=== PATIENT | female | born 1990 | race American Indian/Alaskan Native ===

== ENCOUNTER 2017-01-01 12:53 | Emergency (ER) | payer MEDICAID, OTHER ==
[2017-01-01 12:54] VITALS: BMI 37.5
[2017-01-01 13:00] VITALS: BP 124/84; PULSE 77; RESP 16; TEMP 97.5; O2SAT 98
--- NOTE | 2017-01-01 13:10 | ED PDOC ---
Arrival/HPI - General Chief Complaint: Upper Extremity Problem/Injury Time Seen by Provider: 01/01/17 13:03 Historian: Patient - History of Present Illness Narrative History of Present Illness (Text): 01/01/17 13:12 26 yo F presents with 2 week h/o intermittent mild atraumatic R elbow pain, worse with movement and with lifting. 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 Denies any redness, swelling, fever , chills, other joint pain. PMD Yarelis Past Medical History - Provider Review Nursing Documentation Reviewed: Yes - Infectious Disease Hx of Infectious Diseases: None - Tetanus Immunization Tetanus Immunization: Unknown - Reproductive Menopause: No - Pulmonary Hx Asthma: Yes - Musculoskeletal/Rheumatological Hx Falls: No - Psychiatric Hx Depression: No Hx Emotional Abuse: No Hx Physical Abuse: No Hx Substance Use: No - Surgical History Hx Appendectomy: Yes - Anesthesia Hx Anesthesia: Yes Hx Anesthesia Reactions: No Hx Malignant Hyperthermia: No - Suicidal Assessment Feels Threatened In Home Enviroment: No Family/Social History - Physician Review Nursing Documentation Reviewed: Yes Family/Social History: No Known Family HX Smoking Status: Never Smoked Hx Alcohol Use: Yes Hx Substance Use: No Hx Substance Use Treatment: No Allergies/Home Meds Allergies/Adverse Reactions: Allergies shellfish derived Allergy (Verified 02/16/16 18:49) SWELLING Home Medications: Home Meds Medication Instructions Recorded Confirmed No Known Home Med 01/01/17 01/01/17 Physical Exam - Physical Exam Narrative Physical Exam (Text): 01/01/17 13:13 GENERAL APPEARANCE: Patient is awake, alert, oriented x 3, in no acute distress. SKIN: Warm, dry, (-) rash, (-) lesions. ELBOW: (-) Tenderness, (-) swelling, (-) ecchymosis; (-) decreased ROM, (-) effusion. (-) distal neurovascular deficit, (+) 2 point discrimination, including extension of wrist and digits. Remainder of arm, including shoulder and wrist: Nontender, (-) edema, (-) ecchymosis, (+) FROM. Vital Signs Temp Pulse Resp BP Pulse Ox 01/01/17 12:56 97.5 F L 77 16 124/84 98 Medical Decision Making ED Course and Treatment: 01/01/17 13:07 26 yo F presents with 2 week h/o atraumatic R elbow pain, PE normal, likely overuse syndrome vs tendonitis. Based on history and exam, plan will be for patient follow-up. Advised to rest affected joint and take [id number] Aleve as needed for pain. Patient states she fully agrees with and understands discharge instructions. States that she agrees with the plan and disposition. Verbalized and repeated discharge instructions and plan. I have given the patient opportunity to ask any additional questions. Follow up with primary care physician in 1-2 days without fail. Return to the emergency room at any time for any new or worsening symptoms. - PA / INSPECTOR MECHANICAL / Resident Statement MD/DO has reviewed & agrees with the documentation as recorded. Disposition/Present on Arrival - Present on Arrival Any Indicators Present on Arrival: No History of DVT/PE: No History of Uncontrolled Diabetes: No Urinary Catheter: No History of Decub. Ulcer: No History Surgical Site Infection Following: None - Disposition Have Diagnosis and Disposition been Completed?: Yes Diagnosis: Elbow pain, right Disposition: HOME/ ROUTINE Disposition Time: 13:10 Patient Plan: Discharge Condition: GOOD Discharge Instructions (ExitCare): Tendinitis (ED) Print Language: [place] CITIZEN Additional Instructions: Thank you for letting us take care of you today. You were treated for right elbow pain, possible overuse syndrome, consider tendinitis. The emergency medical care you received today was directed at your acute symptoms. Take over- the-counter Aleve as needed for pain, take with food. It may take several days for your symptoms to resolve. Return to the Emergency Department if your symptoms worsen, do not improve, or if you have any other problems. Please contact your doctor in 2 days for re-evaluation and follow up. Bring any paperwork you were given at discharge with you along with any medications you are taking to your follow up visit. Our treatment cannot replace ongoing medical care by a primary care provider (PCP) outside of the emergency department. Thank you for allowing the [email or web address] team to be part of your care today. Forms: WORK NOTE
== END 2017-01-01 13:54 | disposition home or self-care (01) ==
LOC: ED 12:53
DX: M25.521 Pain in right elbow (principal)

== ENCOUNTER 2017-08-06 15:02 | Emergency (ER) | payer MEDICAID ==
[2017-08-06 15:02] VITALS: BMI 37.5
--- NOTE | 2017-08-06 15:31 | ED PDOC ---
Arrival/HPI - General Chief Complaint: ENT Problem Time Seen by Provider: 08/06/17 15:26 Historian: Patient - History of Present Illness Narrative History of Present Illness (Text): 08/06/17 15:31 26-year-old female [place], with pmh asthma, presents to the emergency department complaining of sore throat x one day. She stated she has difficulty swallowing. Patient feels her tonsils are enlarged. She denies fever, shortness of breath, skin rash, abdominal pain, nausea, vomiting, tinnitus, or abnormal gait Time/Duration: Other (1 day) Context: Home Past Medical History - Provider Review Nursing Documentation Reviewed: Yes - Infectious Disease Hx of Infectious Diseases: None - Tetanus Immunization Tetanus Immunization: Unknown - Pulmonary Hx Asthma: Yes - Musculoskeletal/Rheumatological Hx Falls: No - Psychiatric Hx Depression: No Hx Emotional Abuse: No Hx Physical Abuse: No Hx Substance Use: No - Surgical History Hx Appendectomy: Yes - Anesthesia Hx Anesthesia: Yes Hx Anesthesia Reactions: No Hx Malignant Hyperthermia: No - Suicidal Assessment Feels Threatened In Home Enviroment: No Family/Social History - Physician Review Nursing Documentation Reviewed: Yes Family/Social History: Other (Noncontributory) Smoking Status: Never Smoked Hx Alcohol Use: Yes Frequency of alcohol use: Socially Hx Substance Use: No Hx Substance Use Treatment: No Allergies/Home Meds Allergies/Adverse Reactions: Allergies shellfish derived Allergy (Intermediate, Verified 08/06/17 15:05) SWELLING Review of Systems - Review of Systems Constitutional: Normal. absent: Fatigue, Weight Change, Fevers Eyes: Normal ENT: Sore Throat. absent: Hearing Changes, Tinnitus, TMJ Pain, Voice Changes, Rhinorrhea, Epistaxis, Sinus Congestion Respiratory: Normal. absent: SOB, Cough, Sputum, Wheezing Cardiovascular: Normal. absent: Chest Pain, Palpitations Gastrointestinal: Normal. absent: Abdominal Pain, Nausea, Vomiting Genitourinary Female: Normal. absent: Dysuria, Frequency, Hematuria Musculoskeletal: Normal. absent: Arthralgias, Back Pain, Neck Pain Skin: Normal. absent: Rash Neurological: Normal. absent: Headache, Dizziness, Focal Weakness, Gait Changes , Speech Changes, Facial Droop, Disequilibrium, Seizure Endocrine: Normal Hemo/Lymphatic: Normal Psychiatric: Normal Physical Exam Vital Signs Temp Pulse Resp BP Pulse Ox 08/06/17 15:05 98.8 F 102 H 18 113/80 98 1022/17 15:02 98.8 F 102 H 18 113/80 98 Temperature: Afebrile Blood Pressure: Normal Pulse: Regular Respiratory Rate: Normal Appearance: Positive for: Well-Appearing, Non-Toxic, Comfortable Pain Distress: None Mental Status: Positive for: Alert and Oriented X 3 - Systems Exam Head: Present: Atraumatic, Normocephalic Pupils: Present: PERRL Extroacular Muscles: Present: EOMI Conjunctiva: Present: Normal Mouth: Present: Moist Mucous Membranes Pharnyx: Present: ERYTHEMA, EXUDATE, TONSILS ENLARGED, Muffled/Hoarse Voice. No : Peritonsilar Swelling, Uvular Deviation, Strider, Soft Palate/Uvular Edema Neck: Present: Normal Range of Motion Respiratory/Chest: Present: Clear to Auscultation, Good Air Exchange. No: Respiratory Distress, Accessory Muscle Use Cardiovascular: Present: Regular Rate and Rhythm, Normal S1, S2. No: Murmurs Abdomen: Present: Normal Bowel Sounds. No: Tenderness, Distention, Peritoneal Signs Back: Present: Normal Inspection Upper Extremity: Present: Normal Inspection. No: Cyanosis, Edema Lower Extremity: Present: Normal Inspection. No: Edema Neurological: Present: GCS=15, CN II-XII Intact, Speech Normal Skin: Present: Warm, Dry, Normal Color. No: Rashes Psychiatric: Present: Alert, Oriented x 3, Normal Insight, Normal Concentration Medical Decision Making ED Course and Treatment: 08/06/17 15:35 Patient stated she developed "palpitations" last time she took Amoxicillin. I reviewed the risk of taking Decadron including AVN, DM, glaucoma, osteoporosis. She agrees with these risk, and she is aware of them. She stated she has taken this medication in the past. 08/06/17 16:34 Re-evaluation. Patient feels better. Discussed results and plan with patient who expresses understanding. All questions answered and there is agreement with the plan to discharge home with instructions. Patient stable for discharge. Return if symptoms persist or worsen. Re-evaluation Time: 16:34 Reassessment Condition: Re-examined, Improved - Medication Orders Current Medication Orders: Discontinued Medications Clarithromycin (Biaxin Filmtab) 500 mg PO STAT STA PRN Reason: Protocol Stop: 08/06/17 15:29 Last Admin: 10/22/17 16:37 Dose: 500 mg Comments: Patient refused IM injection. As per Greyson DAVIS, to be medication PO. Dexamethasone (Decadron Inj) 10 mg IM STAT STA Stop: 08/06/17 15:28 Last Admin: 08/06/17 16:38 Dose: 10 mg IM Administration Charges Document 08/06/17 16:38 RG (Rec: 08/06/17 16:38 RG [id number]) Charges for Administration # of IM Administrations 0 Disposition/Present on Arrival - Present on Arrival Any Indicators Present on Arrival: No History of DVT/PE: No History of Uncontrolled Diabetes: No Urinary Catheter: No History of Decub. Ulcer: No History Surgical Site Infection Following: None - Disposition Have Diagnosis and Disposition been Completed?: Yes Diagnosis: Pharyngitis Disposition: HOME/ ROUTINE Disposition Time: 16:34 Patient Plan: Discharge Patient Problems: Current Active Problems Problem Status Onset Pharyngitis Acute Condition: GOOD Discharge Instructions (ExitCare): Pharyngitis (ED) Additional Instructions: Call private doctor for follow up visit in 1-2 days. Take medication as instructed. Return to emergency if symptoms worsen. Change tooth brush in 4 days Prescriptions: Clarithromycin [Biaxin Filmtab] 500 mg PO BID #14 tab Referrals: Nyla Lai MD [Primary Care Provider] - Follow up with primary Forms: [employer] ([place]), WORK NOTE
[2017-08-06 16:48] VITALS: BP 109/71; PULSE 74; RESP 19; TEMP 98.5; O2SAT 99
== END 2017-08-06 16:50 | disposition home or self-care (01) ==
LOC: ED 15:02
DX: J02.9 Acute pharyngitis, unspecified (principal)
CPT/HCPCS: 81025; 99283; J1100

== ENCOUNTER 2017-08-30 19:34 | Emergency (ER) | payer MEDICAID ==
[2017-08-30 19:34] VITALS: BMI 37.5
[2017-08-30 20:02] VITALS: BP 143/90
[2017-08-30 20:27] VITALS: PULSE 89; TEMP 98.1
--- NOTE | 2017-08-30 20:33 | ED PDOC ---
Arrival/HPI - General Historian: Patient <Greyson Rodriguez - Last Filed: 08/30/17 20:34> <Jan Guerrero - Last Filed: 08/30/17 20:47> - General Chief Complaint: Dental Pain Time Seen by Provider: 08/30/17 20:32 - History of Present Illness Narrative History of Present Illness (Text): 08/30/17 20:33 This 26 yo female presents to this ED c/o right lower posterior toothache x 2 days. (Greyson Rodriguez) Past Medical History - Infectious Disease Hx of Infectious Diseases: None - Tetanus Immunization Tetanus Immunization: Unknown - Cardiac Hx Cardiac Disorders: No - Pulmonary Hx Asthma: Yes - Neurological Hx Neurological Disorder: No - HEENT Hx HEENT Disorder: No - Renal Hx Renal Disorder: No - Endocrine/Metabolic Hx Endocrine Disorders: No - Hematological/Oncological Hx Blood Disorders: No - Integumentary Hx Dermatological Disorder: No - Musculoskeletal/Rheumatological Hx Musculoskeletal Disorders: No Hx Falls: No - Gastrointestinal Hx Gastrointestinal Disorders: No - Genitourinary/Gynecological Hx Genitourinary Disorders: No - Psychiatric Hx Psychophysiologic Disorder: No Hx Substance Use: No - Surgical History Hx Appendectomy: Yes - Anesthesia Hx Anesthesia: Yes Hx Anesthesia Reactions: No Hx Malignant Hyperthermia: No - Suicidal Assessment Feels Threatened In Home Enviroment: No <Greyson Rodriguez - Last Filed: 08/30/17 20:34> Family/Social History Smoking Status: Never Smoked Hx Alcohol Use: No Hx Substance Use: No Hx Substance Use Treatment: No <Greyson Rodriguez - Last Filed: 08/30/17 20:34> Allergies/Home Meds <Greyson Rodriguez - Last Filed: 08/30/17 20:34> <Jan Guerrero - Last Filed: 08/30/17 20:47> Allergies/Adverse Reactions: Allergies shellfish derived Allergy (Intermediate, Verified 08/30/17 19:57) SWELLING Vital Signs Temp Pulse Resp BP Pulse Ox 08/30/17 20:26 98.1 F 89 19 99 08/30/17 19:58 98.4 F 85 16 143/90 100 Medical Decision Making Re-evaluation Time: 20:34 Reassessment Condition: Re-examined, Improved <Greyson Rodriguez - Last Filed: 08/30/17 20:34> <Jan Guerrero - Last Filed: 08/30/17 20:47> ED Course and Treatment: 08/30/17 20:34 Re-evaluation. Patient feels better. Discussed results and plan with patient who expresses understanding. All questions answered and there is agreement with the plan to discharge home with instructions. Patient stable for discharge. Return if symptoms persist or worsen. (Greyson Rodriguez) - Medication Orders Current Medication Orders: Discontinued Medications Clindamycin HCl (Cleocin) 300 mg PO STAT STA PRN Reason: Protocol Stop: 08/30/17 20:35 Ketorolac Tromethamine (Toradol) 30 mg IM STAT STA Stop: 08/30/17 20:34 - PA / COVERAGE ANALYST / Resident Statement / has reviewed & agrees with the documentation as recorded. <Jan Guerrero - Last Filed: 08/30/17 20:47> Disposition/Present on Arrival - Present on Arrival Any Indicators Present on Arrival: No History of DVT/PE: No History of Uncontrolled Diabetes: No Urinary Catheter: No History of Decub. Ulcer: No History Surgical Site Infection Following: None - Disposition Have Diagnosis and Disposition been Completed?: Yes Disposition Time: 20:35 Patient Plan: Discharge <Greyson Rodriguez - Last Filed: 08/30/17 20:34> <Jan Guerrero - Last Filed: 08/30/17 20:47> - Disposition Diagnosis: Pain, dental, Gum inflammation Disposition: HOME/ ROUTINE Condition: GOOD Discharge Instructions (ExitCare): Dental Caries (ED) Additional Instructions: Call private doctor for follow up visit in 1-2 days. Take medication as instructed with food. Make sure you see your dentist tomorrow. Return to emergency if symptoms worsen. Prescriptions: Clindamycin [Cleocin] 300 mg PO TID #30 cap Famotidine [Pepcid] 40 mg PO DAILY #10 tablet Naproxen 500 mg PO BID #14 tab Referrals: [facility] [Outside] - Follow up with primary [facility] [Outside] - Follow up with primary Forms: [employer] (Yoruba)
[2017-08-30 21:31] VITALS: RESP 18; O2SAT 98
== END 2017-08-30 21:25 | disposition home or self-care (01) ==
LOC: ED 19:34
DX: K08.89 Other specified disorders of teeth and supporting structures (principal); K05.10 Chronic gingivitis, plaque induced
CPT/HCPCS: 81025; 96372; 99282; J1885

== ENCOUNTER 2018-07-02 19:05 | Emergency (ER) | payer MEDICAID ==
[2018-07-02 21:03] VITALS: BMI 27.4
--- NOTE | 2018-07-02 21:25 | ED PDOC ---
Arrival/HPI - History of Present Illness Time/Duration: 24 hours Symptom Onset: Gradual Symptom Course: Unchanged - General Chief Complaint: Back Pain Time Seen by Provider: 07/02/18 19:21 - History of Present Illness Narrative History of Present Illness (Text): 07/02/18 21:17 27 year old female, whose past medical history includes asthma, presents to the emergency department with lower back pain, since 1 day. Patient states she is having pain at her "kidneys", which radiates around to her abdomen. Patient states the pain is consistent, and slightly worse when sitting. Patient informs her last menstruation was june 14, and no history of kidney stones. Patient also informs pain to the touch on her lower back, but not to her abdomen. Patient informs taking one dose of each motrin and tylenol, with no ease in pain. Patient denies any dysuia, hematuria, urinary output changes, vaginal discharge or bleeding, fever, shortness of breath, constipation, or any other complaints. (Juventino Acosta) Past Medical History - Provider Review Nursing Documentation Reviewed: Yes - Infectious Disease Hx of Infectious Diseases: None - Tetanus Immunization Tetanus Immunization: Unknown - Cardiac Hx Cardiac Disorders: No - Pulmonary Hx Asthma: Yes - Neurological Hx Neurological Disorder: No - HEENT Hx HEENT Disorder: No - Renal Hx Renal Disorder: No - Endocrine/Metabolic Hx Endocrine Disorders: No - Hematological/Oncological Hx Blood Disorders: No - Integumentary Hx Dermatological Disorder: No - Musculoskeletal/Rheumatological Hx Musculoskeletal Disorders: No Hx Falls: No - Gastrointestinal Hx Gastrointestinal Disorders: No - Genitourinary/Gynecological Hx Genitourinary Disorders: No - Psychiatric Hx Psychophysiologic Disorder: No Hx Substance Use: No - Surgical History Hx Appendectomy: Yes - Anesthesia Hx Anesthesia: Yes Hx Anesthesia Reactions: No Hx Malignant Hyperthermia: No - Suicidal Assessment Feels Threatened In Home Enviroment: No Family/Social History - Physician Review Nursing Documentation Reviewed: Yes Family/Social History: No Known Family HX Smoking Status: Never Smoked Hx Alcohol Use: No Hx Substance Use: No Hx Substance Use Treatment: No Allergies/Home Meds Allergies/Adverse Reactions: Allergies shellfish derived Allergy (Intermediate, Verified 08/30/17 19:57) SWELLING Review of Systems - Physician Review All systems were reviewed & negative as marked: Yes - Review of Systems Constitutional: Normal. absent: Fevers Eyes: Normal ENT: Normal Respiratory: Normal. absent: SOB Cardiovascular: Normal Gastrointestinal: Abdominal Pain. absent: Constipation Genitourinary Female: Normal. absent: Dysuria, Hematuria, Urine Output Changes , Vaginal Bleeding, Vaginal Discharge Musculoskeletal: Back Pain Skin: Normal Neurological: Normal Endocrine: Normal Hemo/Lymphatic: Normal Psychiatric: Normal Physical Exam Vital Signs Reviewed: Yes Temperature: Afebrile Blood Pressure: Normal Pulse: Regular Respiratory Rate: Normal Appearance: Positive for: Well-Appearing, Non-Toxic, Comfortable Pain Distress: None Mental Status: Positive for: Alert and Oriented X 3 - Systems Exam Head: Present: Atraumatic, Normocephalic Pupils: Present: PERRL Extroacular Muscles: Present: EOMI Conjunctiva: Present: Normal Mouth: Present: Moist Mucous Membranes Neck: Present: Normal Range of Motion Respiratory/Chest: Present: Clear to Auscultation, Good Air Exchange. No: Respiratory Distress, Accessory Muscle Use Cardiovascular: Present: Regular Rate and Rhythm, Normal S1, S2. No: Murmurs Abdomen: No: Tenderness, Distention, Peritoneal Signs Back: Present: Paraspinal Tenderness (lumbosacral region) Upper Extremity: Present: Normal Inspection. No: Cyanosis, Edema Lower Extremity: Present: Normal Inspection. No: Edema Neurological: Present: GCS=15, CN II-XII Intact, Speech Normal Skin: Present: Warm, Dry, Normal Color. No: Rashes Psychiatric: Present: Alert, Oriented x 3, Normal Insight, Normal Concentration Vital Signs Temp Pulse Resp BP Pulse Ox 07/03/18 00:00 98.3 F 85 16 121/75 98 07/02/18 23:00 98.5 F 82 18 121/72 99 07/02/18 21:05 98.2 F 82 16 119/75 98 07/02/18 21:03 97.6 F 104 H 18 132/74 97 Medical Decision Making ED Course and Treatment: 07/02/18 21:38 Impression: 27 year old female presents with lower back pain Differential Diagnosis Includes But Is Not Limited To: Plan: -- Toradol -- Labs -- Urinalysis -- Reassess and disposition Prior Visits: Notes and results from previous visits were reviewed. Progress Notes: 07/02/18 23:41 Patient adamantly refusing IM injection of Toradol requesting PO medication. Motrin ordered and given. Call to the lab reveals UA is positive for WBCs. Keflex ordered. (Juventino Acosta) - Lab Interpretations Microbiology Results: Microbiology Results 07/02/18 22:53 Urine,Clean Catch Urine Culture - Final Staphylococcus Saprophyticus Lab Results: Lab Results 07/02/18 22:53: Urine Color Yellow, Urine Appearance Sl cloudy, Urine pH 7.5, Ur Specific [place] 1.015, Urine Protein 30 H, Urine Glucose (UA) Negative, Urine Ketones Trace H, Urine Blood Moderate H, Urine Nitrate Negative, Urine Bilirubin Negative, Urine Urobilinogen 0.2, Ur Leukocyte Esterase Moderate H, Urine RBC 1 - 3, Urine WBC Tntc, Ur Epithelial Cells 0 - 2, Urine Bacteria Small - Medication Orders Current Medication Orders: Discontinued Medications Cephalexin Monohydrate (Keflex) 500 mg PO STAT STA PRN Reason: Protocol Stop: 07/02/18 23:40 Last Admin: 07/03/18 00:58 Dose: 500 mg Ibuprofen (Motrin Tab) 600 mg PO STAT STA Stop: 07/02/18 23:00 Last Admin: 07/02/18 23:32 Dose: 600 mg MAR Pain/Vitals Document 07/02/18 23:32 LAC (Rec: 07/02/18 23:32 [id number] Pain Reassessment Is This A Pain ReAssessment? No Ketorolac Tromethamine (Toradol) 60 mg IM STAT STA Stop: 07/02/18 21:17 Last Admin: 07/02/18 23:32 Dose: MAR Pain Assessment Document 07/02/18 23:32 LAC (Rec: 07/02/18 23:32 [id number]) Pain Reassessment Is this a pain reassessment? No - Scribe Statement The provider has reviewed the documentation as recorded by the Scribe - Scribe Statement Cristian Bates All medical record entries made by the Scribe were at my direction and personally dictated by me. I have reviewed the chart and agree that the record accurately reflects my personal performance of the history, physical exam, medical decision making, and the department course for this patient. I have also personally directed, reviewed, and agree with the discharge instructions and disposition. (Juventino Acosta) Disposition/Present on Arrival - Present on Arrival Any Indicators Present on Arrival: No History of DVT/PE: No History of Uncontrolled Diabetes: No Urinary Catheter: No History of Decub. Ulcer: No History Surgical Site Infection Following: None - Disposition Have Diagnosis and Disposition been Completed?: Yes Disposition Time: 00:02 Patient Plan: Discharge - Disposition Diagnosis: Cystitis Disposition: HOME/ ROUTINE Condition: IMPROVED Prescriptions: Cephalexin [cephalexin] 500 mg PO BID 5 Days #10 cap Ciprofloxacin [Cipro] 500 mg PO BID #14 tab Referrals: Sakshi Castillo MD [Medical Doctor] - Follow up with primary [facility] [place] - Follow up with primary Forms: [employer] (Hebrew), WORK NOTE Addendum Addendum: 07/06/18 14:25 Cephalosproin was not tested. UC + Staphy. Pt was told to stop Keflex. 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 (Morro,Deborah A)
[2018-07-02 23:17] LABS: PH,URINE 7.5 (4.7-8.0); URINE BILIRUBIN NEGATIVE (NEGATIVE); URINE BLOOD MODERATE (NEGATIVE); URINE GLUCOSE (UA) NEGATIVE (NEGATIVE); URINE LEUKOCYTE ESTERASE MODERATE Leu/uL (NEGATIVE); URINE PROTEIN 30 mg/dL (<30 mg/dL); URINE UROBILINOGEN 0.2 E.U./dL (<1 E.U./dL)
[2018-07-02 23:30] LABS: URINE COLOR YELLOW (YELLOW)
[2018-07-02 23:31] LABS: URINE APPEARANCE SL CLOUDY (CLEAR)
[2018-07-02 23:41] LABS: URINE BACTERIA SMALL (NEG); URINE EPITHELIAL CELLS 0 - 2 /hpf (0-5); URINE WBC TNTC /hpf (0-6)
[2018-07-03 01:00] VITALS: BP 121/75; PULSE 85; RESP 16; TEMP 98.3; O2SAT 98
== END 2018-07-03 00:01 | disposition home or self-care (01) ==
LOC: ED 19:05
DX: N30.90 Cystitis, unspecified without hematuria (principal)